=== PATIENT | male | born 1960 | race Caucasian/White ===

== ENCOUNTER 2016-06-15 19:50 | Emergency (ER) | payer OTHER, SELFPAY ==
--- NOTE | 2016-06-20 13:38 | ER ---
ADMIT: 06/15/2016 RM/LOC: ER [facility] MR#: [id number] [address] [id number] [address] [place] [address] Emergency Room Report SEX: M AGE: 55 : 1960 DATE: 06/15/2016 ADDENDUM: This patient comes into the ER because he has had pain in his foot for the last month. He does not remember having injury to it. Sometimes, he will notice it is swollen and the swelling goes down but he continues to have pain, and sometimes it seems to be worse in others. X-ray of his foot showed a fracture of the left 2nd metatarsal. I did consult with Dr. Thompson concerning treatment of this patient. He was placed in a boot. We will have him ice and elevate, and he is to follow up with Dr. Tineo this next week. Please see my T-sheet. DIAGNOSIS: Stress fracture of the left 2nd digit. BRY Diana / Adriel Thompson MD / modl JOB #: [id number] CC: Adriel Thompson MD, Attending Physician Greg Tineo MD, Family Physician
== END 2016-06-15 21:10 | disposition home or self-care (01) ==
LOC: ER 19:50
DX: S92.325A Nondisplaced fracture of second metatarsal bone, left foot, initial encounter for closed fracture (principal); Z79.899 Other long term (current) drug therapy; W18.09XA Striking against other object with subsequent fall, initial encounter